=== PATIENT | female | born 1955 | race Caucasian/White ===

== ENCOUNTER 2021-03-09 13:31 | Inpatient (IN) ==
[2021-03-09] MEDS ORDERED: 0.9 % Sodium Chloride 1,000 ML IVC ONE (14:17)
[2021-03-09 14:35] LABS: Basophils # 0.1 K/mcL (0.0-0.2); Basophils % 0.3 %; Eosinophils % 0.2 %; Hematocrit 45.1 % (35.3-44.9); Hemoglobin 14.3 g/dL (11.5-15.4); Immature Granulocytes % 0.5 % (0-4); Lymphocytes # 1.9 K/mcL (0.6-4.6); Mean Corpuscular HGB Conc 31.7 g/dL (31.6-35.5); Mean Corpuscular Hemoglobin 26.7 pg (28.0-33.3); Mean Corpuscular Volume 84.3 fL (83.0-100.0); Monocytes # 1.3 K/mcL (0.0-1.3); Monocytes % 6.4 %; Neutrophils # 17.2 K/mcL (1.6-8.9); Platelet Count 421 K/mcL (140-400); Red Blood Count 5.35 M/mcL (3.82-4.97); Red Cell Distribution Width 14.8 % (11.5-14.5); Segmented Neutrophils % 83.6 %; White Blood Count 20.6 K/mcL (4.3-11.1)
[2021-03-09 14:53] LABS: Alanine Aminotransferase 7 Units/L (7-52); Albumin 4.4 g/dL (3.5-5.7); Albumin/Globulin Ratio 1.2 (1.1-2.2); Alkaline Phosphatase 140 Units/L (34-104); Amylase 37 Units/L (29-103); Aspartate Amino Transferase 13 Units/L (13-39); BUN/Creatinine Ratio 17 (6-26); Bilirubin,Direct 0.1 mg/dL (0.0-0.2); Bilirubin,Indirect 0.4 mg/dL (0.0-1.0); Bilirubin,Total 0.5 mg/dL (0.3-1.0); Blood Urea Nitrogen 15 mg/dL (8-23); Calcium 9.6 mg/dL (8.6-10.3); Carbon Dioxide 24 mEq/L (23-29); Chloride 98 mEq/L (98-107); Globulin 3.8 g/dL (2.4-3.5); Glucose 93 mg/dL (70-105); Lipase 10 Units/L (11-82); Osmolality,Calculated 279 (280-300); Potassium 3.3 mEq/L (3.5-5.1); Sodium 134 mEq/L (136-145); Total Protein 8.2 g/dL (6.4-8.9); eGFR For African Americans > 60 (> 60); eGFR For Non-African Americans > 60 (> 60)
[2021-03-09 15:00] LABS: Troponin I < 0.03 ng/mL (< 0.04)
[2021-03-09] MEDS ORDERED: Piperacillin/Tazobactam 3.375 GM in 0.9 % Sodium Chloride Mini Bag 100 ML IVPB ONE (16:21)
[2021-03-09] MEDS ORDERED: Acetaminophen 325 MG TABLET PO PRN (17:22)
[2021-03-09] MEDS ORDERED: Ondansetron 4 MG/2 ML VIAL IVP PRN (17:22)
[2021-03-09] MEDS ORDERED: Naloxone 0.4 MG/ML INJ IVP PRN (17:22)
[2021-03-09] MEDS ORDERED: Melatonin 3 MG TABLET PO PRN (17:22)
[2021-03-09] MEDS ORDERED: 0.9 % Sodium Chloride 1,000 ML IVC SCH (17:30)
[2021-03-09] MEDS ORDERED: *HR* Dextrose 50 % in Water (Vial) 50 ML VIAL IVP PRN (18:57)
[2021-03-09] MEDS ORDERED: Dextrose Gel 15 GM/37.5 ML TUBE PO PRN ×2 (18:57)
[2021-03-09] MEDS ORDERED: D5% in Water 1,000 ML IVC PRN (18:57)
[2021-03-09 19:35] LABS: Influenza A PCR Negative (Negative); Influenza B PCR Negative (Negative); Resp. Syncytial Virus PCR Negative (Negative); SARS-CoV-2 by PCR (In House) Negative (Negative)
[2021-03-09 20:38] LABS: Bacteria,Urine Few per hpf (None-Few); Bilirubin,Urine Negative (Negative); Blood,Urine Small (Negative); Clarity,Urine Clear (Clear); Color,Urine Yellow (Yellow); Glucose,Urine (UA) Normal (Normal); Ketones,Urine 40 mg/dL (Negative); Leukocyte Esterase,Urine Large (Negative); Mucus,Urine Few per lpf (None-Few); Nitrite,Urine Negative (Negative); Protein,Urine Trace mg/dL (Neg-Trace); RBC,Urine 15-30 per hpf (0-3); Specific Gravity,Urine 1.028 (1.010-1.025); Squamous Epithelial Cell,Urine Few per hpf (None-Few); Urobilinogen,Urine Normal (Normal); WBC,Urine 30-50 per hpf (0-3)
[2021-03-10] MEDS: Piperacillin/Tazobactam 3.375 GM in 0.9 % Sodium Chloride Mini Bag 100 ML IVPB SCH ×3 (01:17→16:46)
[2021-03-10 06:43] LABS: Basophils % 0.2 %; Eosinophils % 0.2 %; Hematocrit 35.2 % (35.3-44.9); Hemoglobin 11.4 g/dL (11.5-15.4); Immature Granulocytes % 0.6 % (0-4); Lymphocytes # 1.3 K/mcL (0.6-4.6); Lymphocytes % 7.4 %; Mean Corpuscular HGB Conc 32.4 g/dL (31.6-35.5); Mean Corpuscular Hemoglobin 27.1 pg (28.0-33.3); Mean Corpuscular Volume 83.6 fL (83.0-100.0); Mean Platelet Volume 9.4 fL (9.4-12.4); Monocytes % 5.9 %; Neutrophils # 14.6 K/mcL (1.6-8.9); Platelet Count 302 K/mcL (140-400); Red Blood Count 4.21 M/mcL (3.82-4.97); Red Cell Distribution Width 14.6 % (11.5-14.5); Segmented Neutrophils % 85.7 %
[2021-03-10 06:50] LABS: INR 1.3; Prothrombin Time 14.4 Seconds (9.4-12.1)
[2021-03-10 07:03] LABS: BUN/Creatinine Ratio 22 (6-26); Blood Urea Nitrogen 17 mg/dL (8-23); Calcium 8.1 mg/dL (8.6-10.3); Carbon Dioxide 19 mEq/L (23-29); Chloride 106 mEq/L (98-107); Glucose 73 mg/dL (70-105); Magnesium 1.9 mg/dL (1.6-2.6); Osmolality,Calculated 282 (280-300); Phosphorous 3.3 mg/dL (2.7-4.5); Potassium 3.8 mEq/L (3.5-5.1); Sodium 136 mEq/L (136-145); eGFR For African Americans > 60 (> 60); eGFR For Non-African Americans > 60 (> 60)
[2021-03-10] MEDS ORDERED: Famotidine 20 MG/2 ML VIAL IVP ONE (09:09)
[2021-03-10] MEDS ORDERED: Scopolamine Patch 1.5 MG PATCH.TD72 TD ONE (09:09)
[2021-03-10] MEDS ORDERED: Famotidine 20 MG/2 ML VIAL ONE (09:11)
[2021-03-10] MEDS ORDERED: Scopolamine Patch 1.5 MG PATCH.TD72 ONE (09:11)
[2021-03-10] MEDS ORDERED: *HR* Propofol 200 MG/20 ML VIAL IVP ONE (09:13)
[2021-03-10] MEDS ORDERED: *HR* FentaNYL (PF) 100 MCG/2 ML VIAL ONE (09:13)
[2021-03-10] MEDS ORDERED: Ondansetron 4 MG/2 ML VIAL ONE (09:15)
[2021-03-10] MEDS ORDERED: Lidocaine -MPF 2% 2 ML VIAL ONE ×3 (09:15→12:52)
[2021-03-10] MEDS ORDERED: Lidocaine HCL 4 ML Topical Solution (Laryng-O-Jet Kit Sterile Pak) TP ONE (09:15)
[2021-03-10] MEDS ORDERED: *HR* Rocuronium Bromide 50 MG/5 ML VIAL ONE (09:15)
[2021-03-10] MEDS ORDERED: *HR* HYDROmorphone PF 0.5 MG/0.5 ML SYRINGE IVP PRN (10:22)
[2021-03-10] MEDS ORDERED: Ondansetron 4 MG/2 ML VIAL IVP PRN ×2 (10:22→15:10)
[2021-03-10] MEDS ORDERED: Sugammadex Sodium 200 MG/2 ML VIAL IV ONE (12:34)
[2021-03-10] MEDS ORDERED: *HR* HYDROMORPHONE 2 MG/ML VIAL ONE (13:52)
[2021-03-10] MEDS ORDERED: D5% in 0.45% NACL w KCl 20 MEQ/1,000 ML MLS IVC SCH (15:10)
[2021-03-10] MEDS ORDERED: Naloxone 0.4 MG/ML INJ IVP PRN (15:10)
[2021-03-10] MEDS ORDERED: Morphine PCA 30 MG/ 30 ML 30 ML PCA.VIAL IVC PRN (15:10)
[2021-03-10] MEDS ORDERED: Dextrose Gel 15 GM/37.5 ML TUBE PO PRN ×2 (15:10)
[2021-03-10] MEDS ORDERED: Melatonin 3 MG TABLET PO PRN (15:10)
[2021-03-10] MEDS ORDERED: *HR* Dextrose 50 % in Water (Vial) 50 ML VIAL IVP PRN (15:10)
[2021-03-10] MEDS ORDERED: D5% in Water 1,000 ML IVC PRN (15:10)
[2021-03-10] MEDS ORDERED: Gabapentin 300 MG CAPSULE PO SCH (15:10)
[2021-03-10] MEDS: Acetaminophen IV 1,000 MG/100 ML BAG IVPB SCH (17:51)
[2021-03-10] MEDS: Pantoprazole 40 MG VIAL IVP SCH (17:54)
[2021-03-10] MEDS: Ketorolac 15 MG/ML VIAL IVP SCH (17:55)
[2021-03-10] MEDS: *HR* Heparin 5,000 UNIT/ML VIAL SQ SCH (17:55)
[2021-03-11] MEDS ORDERED: D5% in 0.45% NACL w KCl 20 MEQ/1,000 ML MLS IVC SCH (00:39)
[2021-03-11] MEDS: Acetaminophen IV 1,000 MG/100 ML BAG IVPB SCH ×4 (00:56→18:59)
[2021-03-11] MEDS: Ketorolac 15 MG/ML VIAL IVP SCH ×4 (00:57→19:00)
[2021-03-11] MEDS: Piperacillin/Tazobactam 3.375 GM in 0.9 % Sodium Chloride Mini Bag 100 ML IVPB SCH ×3 (00:58→18:58)
[2021-03-11 03:09] LABS: Basophils % 0.1 %; Hematocrit 29.7 % (35.3-44.9); Immature Granulocytes % 0.7 % (0-4); Lymphocytes # 1.1 K/mcL (0.6-4.6); Lymphocytes % 5.2 %; Mean Corpuscular HGB Conc 31.6 g/dL (31.6-35.5); Mean Corpuscular Hemoglobin 26.3 pg (28.0-33.3); Mean Corpuscular Volume 83.2 fL (83.0-100.0); Monocytes # 1.6 K/mcL (0.0-1.3); Monocytes % 7.6 %; Neutrophils # 18.7 K/mcL (1.6-8.9); Platelet Count 275 K/mcL (140-400); Red Blood Count 3.57 M/mcL (3.82-4.97); Red Cell Distribution Width 14.6 % (11.5-14.5); Segmented Neutrophils % 86.4 %; White Blood Count 21.7 K/mcL (4.3-11.1)
[2021-03-11 03:10] LABS: Hemoglobin 9.4 g/dL (11.5-15.4)
[2021-03-11 03:32] LABS: BUN/Creatinine Ratio 27 (6-26); Blood Urea Nitrogen 25 mg/dL (8-23); Calcium 7.7 mg/dL (8.6-10.3); Carbon Dioxide 20 mEq/L (23-29); Chloride 106 mEq/L (98-107); Glucose 198 mg/dL (70-105); Osmolality,Calculated 282 (280-300); Potassium 4.2 mEq/L (3.5-5.1); Sodium 131 mEq/L (136-145); eGFR For African Americans > 60 (> 60); eGFR For Non-African Americans > 60 (> 60)
[2021-03-11 03:33] LABS: Magnesium 1.7 mg/dL (1.6-2.6); Phosphorous 2.1 mg/dL (2.7-4.5)
[2021-03-11] MEDS: *HR* Heparin 5,000 UNIT/ML VIAL SQ SCH ×2 (06:00→18:59)
[2021-03-11] MEDS ORDERED: Levothyroxine 25 MCG TABLET PO SCH (06:30)
[2021-03-11] MEDS ORDERED: Losartan/HCTZ 50-12.5 TABLET PO SCH (09:00)
[2021-03-11] MEDS: 0.9 % Sodium Chloride 1,000 ML IVC SCH (09:34)
[2021-03-11] MEDS: Fluconazole 400 MG/200 ML 400 MG/200 ML BAG IVPB SCH (09:36)
[2021-03-11] MEDS: Pantoprazole 40 MG VIAL IVP SCH (09:42)
[2021-03-11 13:25] LABS: Hematocrit 29.1 % (35.3-44.9); Hemoglobin 9.3 g/dL (11.5-15.4)
[2021-03-12] MEDS: 0.9 % Sodium Chloride 1,000 ML IVC SCH (00:14)
[2021-03-12] MEDS: Piperacillin/Tazobactam 3.375 GM in 0.9 % Sodium Chloride Mini Bag 100 ML IVPB SCH ×3 (00:15→18:13)
[2021-03-12] MEDS: Ketorolac 15 MG/ML VIAL IVP SCH ×4 (00:15→18:18)
[2021-03-12] MEDS: Acetaminophen IV 1,000 MG/100 ML BAG IVPB SCH ×4 (00:15→18:13)
[2021-03-12 05:51] LABS: Basophils % 0.2 %; Eosinophils # 0.4 K/mcL (0.0-0.6); Eosinophils % 2.1 %; Hematocrit 26.4 % (35.3-44.9); Hemoglobin 8.5 g/dL (11.5-15.4); Immature Granulocytes % 0.4 % (0-4); Lymphocytes # 1.3 K/mcL (0.6-4.6); Lymphocytes % 7.5 %; Mean Corpuscular HGB Conc 32.2 g/dL (31.6-35.5); Mean Corpuscular Hemoglobin 27.3 pg (28.0-33.3); Mean Corpuscular Volume 84.9 fL (83.0-100.0); Mean Platelet Volume 10.2 fL (9.4-12.4); Monocytes # 1.1 K/mcL (0.0-1.3); Monocytes % 6.7 %; Platelet Count 230 K/mcL (140-400); Red Blood Count 3.11 M/mcL (3.82-4.97); Red Cell Distribution Width 15.5 % (11.5-14.5); Segmented Neutrophils % 83.1 %; White Blood Count 16.9 K/mcL (4.3-11.1)
[2021-03-12 06:08] LABS: BUN/Creatinine Ratio 26 (6-26); Blood Urea Nitrogen 21 mg/dL (8-23); Calcium 7.7 mg/dL (8.6-10.3); Carbon Dioxide 22 mEq/L (23-29); Chloride 110 mEq/L (98-107); Glucose 78 mg/dL (70-105); Magnesium 1.7 mg/dL (1.6-2.6); Osmolality,Calculated 284 (280-300); Potassium 4.2 mEq/L (3.5-5.1); Sodium 136 mEq/L (136-145); eGFR For African Americans > 60 (> 60); eGFR For Non-African Americans > 60 (> 60)
[2021-03-12] MEDS: *HR* Heparin 5,000 UNIT/ML VIAL SQ SCH ×2 (06:43→18:17)
[2021-03-12] MEDS ORDERED: *HR* OxyCODONE Immed Rel 5 MG TABLET PO PRN (07:43)
[2021-03-12] MEDS: Fluconazole 400 MG/200 ML 400 MG/200 ML BAG IVPB SCH (09:25)
[2021-03-12] MEDS: Pantoprazole 40 MG VIAL IVP SCH (09:27)
[2021-03-13] MEDS: Acetaminophen IV 1,000 MG/100 ML BAG IVPB SCH ×2 (00:12→06:04)
[2021-03-13] MEDS: Ketorolac 15 MG/ML VIAL IVP SCH ×2 (03:16→06:04)
[2021-03-13] MEDS: Piperacillin/Tazobactam 3.375 GM in 0.9 % Sodium Chloride Mini Bag 100 ML IVPB SCH ×3 (03:22→18:03)
[2021-03-13] MEDS: Levothyroxine 25 MCG TABLET PO SCH (06:04)
[2021-03-13 06:12] LABS: Basophils % 0.2 %; Eosinophils # 0.4 K/mcL (0.0-0.6); Eosinophils % 2.5 %; Hematocrit 24.6 % (35.3-44.9); Immature Granulocytes % 0.5 % (0-4); Lymphocytes # 1.3 K/mcL (0.6-4.6); Lymphocytes % 9.1 %; Mean Corpuscular HGB Conc 32.5 g/dL (31.6-35.5); Mean Corpuscular Hemoglobin 27.5 pg (28.0-33.3); Mean Corpuscular Volume 84.5 fL (83.0-100.0); Monocytes # 0.7 K/mcL (0.0-1.3); Monocytes % 4.9 %; Neutrophils # 11.9 K/mcL (1.6-8.9); Platelet Count 224 K/mcL (140-400); Red Blood Count 2.91 M/mcL (3.82-4.97); Red Cell Distribution Width 16.1 % (11.5-14.5); Segmented Neutrophils % 82.8 %; White Blood Count 14.3 K/mcL (4.3-11.1)
[2021-03-13 08:03] LABS: BUN/Creatinine Ratio 26 (6-26); Blood Urea Nitrogen 19 mg/dL (8-23); Calcium 7.9 mg/dL (8.6-10.3); Carbon Dioxide 21 mEq/L (23-29); Chloride 112 mEq/L (98-107); Glucose 79 mg/dL (70-105); Osmolality,Calculated 289 (280-300); Potassium 4.2 mEq/L (3.5-5.1); Sodium 139 mEq/L (136-145); eGFR For African Americans > 60 (> 60); eGFR For Non-African Americans > 60 (> 60)
[2021-03-13 08:04] LABS: Phosphorous 3.3 mg/dL (2.7-4.5)
[2021-03-13] MEDS: Losartan/HCTZ 50-12.5 TABLET PO SCH (08:49)
[2021-03-13] MEDS: Fluconazole 400 MG/200 ML 400 MG/200 ML BAG IVPB SCH (08:49)
[2021-03-13 13:16] LABS: Ferritin 100 ng/mL (10-120); Iron < 10 mcg/dL (50-170); Transferrin 176 mg/dL (203-362)
[2021-03-13] MEDS ORDERED: Iron Sucrose Complex 200 MG in 0.9 % Sodium Chloride 100 ML IVPB ONE (14:30)
[2021-03-13] MEDS: Ibuprofen 800 MG TABLET PO SCH (18:02)
[2021-03-14] MEDS: Ibuprofen 800 MG TABLET PO SCH ×2 (00:06→08:43)
[2021-03-14] MEDS: Piperacillin/Tazobactam 3.375 GM in 0.9 % Sodium Chloride Mini Bag 100 ML IVPB SCH ×2 (00:08→08:43)
[2021-03-14 05:47] LABS: Basophils # 0.1 K/mcL (0.0-0.2); Basophils % 0.3 %; Eosinophils # 0.7 K/mcL (0.0-0.6); Eosinophils % 4.8 %; Hematocrit 30.8 % (35.3-44.9); Immature Granulocytes % 0.6 % (0-4); Lymphocytes # 1.6 K/mcL (0.6-4.6); Lymphocytes % 10.7 %; Mean Corpuscular HGB Conc 31.8 g/dL (31.6-35.5); Mean Corpuscular Volume 84.8 fL (83.0-100.0); Mean Platelet Volume 9.9 fL (9.4-12.4); Monocytes # 0.6 K/mcL (0.0-1.3); Monocytes % 3.8 %; Neutrophils # 11.6 K/mcL (1.6-8.9); Platelet Count 318 K/mcL (140-400); Red Blood Count 3.63 M/mcL (3.82-4.97); Red Cell Distribution Width 16.2 % (11.5-14.5); Segmented Neutrophils % 79.8 %; White Blood Count 14.6 K/mcL (4.3-11.1)
[2021-03-14 05:48] LABS: Hemoglobin 9.8 g/dL (11.5-15.4)
[2021-03-14 06:02] LABS: Magnesium 1.9 mg/dL (1.6-2.6); Phosphorous 3.5 mg/dL (2.7-4.5)
[2021-03-14] MEDS: Levothyroxine 25 MCG TABLET PO SCH (06:02)
[2021-03-14 06:05] LABS: BUN/Creatinine Ratio 26 (6-26); Blood Urea Nitrogen 18 mg/dL (8-23); Carbon Dioxide 23 mEq/L (23-29); Chloride 109 mEq/L (98-107); Glucose 85 mg/dL (70-105); Osmolality,Calculated 291 (280-300); Potassium 4.1 mEq/L (3.5-5.1); Sodium 140 mEq/L (136-145); eGFR For African Americans > 60 (> 60); eGFR For Non-African Americans > 60 (> 60)
[2021-03-14] MEDS: Losartan/HCTZ 50-12.5 TABLET PO SCH (08:43)
[2021-03-14] MEDS: Fluconazole 400 MG/200 ML 400 MG/200 ML BAG IVPB SCH (08:44)
[2021-03-14 11:04] VITALS: BP 120/74; PULSE 70; TEMP 97.9; O2SAT 95
== END 2021-03-14 13:43 | disposition home health service (06) | DRG 330 ==
LOC: EMEROOARM 13:31 → 3ANU 13:31 → SUATTDRO 16:34 → 3ANU 16:57 → SUATTDRO 03-10 17:51
PROVIDERS: ADMIT Family Medicine; ATTEND Hospitalist

== ENCOUNTER 2021-08-29 12:29 | Inpatient (IN) ==
[2021-08-29] MEDS ORDERED: Acetaminophen IV 1,000 MG/100 ML BAG IVPB ONE (12:45)
[2021-08-29] MEDS ORDERED: Ringers Solution, Lactated 1,000 ML IVC ONE (12:45)
[2021-08-29] MEDS ORDERED: Famotidine 20 MG/2 ML VIAL IVP ONE (12:45)
[2021-08-29] MEDS ORDERED: cefOXitin 2,000 MG in Water for inj. (sterile) 10 ML IVP ONE (13:06)
[2021-08-29] MEDS ORDERED: *HR* Propofol 200 MG/20 ML VIAL IVP ONE (14:08)
[2021-08-29] MEDS ORDERED: Lidocaine -MPF 4% 5 ML AMPUL ONE (14:08)
[2021-08-29] MEDS ORDERED: Lidocaine -MPF 2% 5 ML VIAL ONE (14:08)
[2021-08-29] MEDS ORDERED: Ondansetron 4 MG/2 ML VIAL ONE (14:08)
[2021-08-29] MEDS ORDERED: *HR* Rocuronium Bromide 50 MG/5 ML VIAL ONE ×2 (14:08→17:56)
[2021-08-29] MEDS ORDERED: *HR* Labetalol 20 MG/4 ML SYRINGE IVP ONE (14:12)
[2021-08-29] MEDS ORDERED: Ondansetron 4 MG/2 ML VIAL IVP ONE (15:15)
[2021-08-29] MEDS ORDERED: Albuterol 2.5 MG/3 ML NEBULIZER IH PRN (15:34)
[2021-08-29] MEDS ORDERED: Naloxone 0.4 MG/ML INJ IVP PRN ×2 (15:34→20:01)
[2021-08-29] MEDS ORDERED: Nitroglycerin 0.4 MG TAB.SUBL SL PRN (15:34)
[2021-08-29] MEDS ORDERED: *HR* HYDROmorphone PF 0.5 MG/0.5 ML SYRINGE IVP PRN (15:34)
[2021-08-29] MEDS ORDERED: *HR* FentaNYL (PF) 100 MCG/2 ML VIAL IVP PRN (15:34)
[2021-08-29] MEDS ORDERED: Ondansetron 4 MG/2 ML VIAL IVP PRN ×2 (15:34→20:01)
[2021-08-29] MEDS ORDERED: *HR* FentaNYL (PF) 100 MCG/2 ML VIAL ONE (15:43)
[2021-08-29] MEDS ORDERED: *HR* Midazolam HCl 2 MG/2 ML VIAL ONE (15:44)
[2021-08-29] MEDS ORDERED: EPHEDrine 50 MG/ML VIAL ONE (17:09)
[2021-08-29] MEDS ORDERED: *HR* HYDROMORPHONE 2 MG/ML VIAL ONE (18:36)
[2021-08-29] MEDS ORDERED: Sugammadex Sodium 200 MG/2 ML VIAL IV ONE (19:00)
[2021-08-29] MEDS ORDERED: Morphine Sulfate 2 MG/ML SYRINGE IVP PRN ×2 (20:01)
[2021-08-29] MEDS ORDERED: *HR* Metoprolol 5 MG/5 ML VIAL IVP PRN (20:01)
[2021-08-29] MEDS: 0.9 % Sodium Chloride 1,000 ML IVC SCH (21:16)
[2021-08-30] MEDS: Ketorolac 30 MG/ML VIAL IVP SCH ×4 (00:13→18:11)
[2021-08-30] MEDS: Piperacillin/Tazobactam 3.375 GM in 0.9 % Sodium Chloride Mini Bag 100 ML IVPB SCH ×3 (01:19→15:56)
[2021-08-30] MEDS: Acetaminophen IV 1,000 MG/100 ML BAG IVPB SCH ×4 (01:26→18:10)
[2021-08-30 02:17] LABS: Basophils % 0.1 %; Hematocrit 34.6 % (35.3-44.9); Hemoglobin 10.9 g/dL (11.5-15.4); Immature Granulocytes % 0.6 % (0-4); Lymphocytes # 0.6 K/mcL (0.6-4.6); Lymphocytes % 2.5 %; Mean Corpuscular HGB Conc 31.5 g/dL (31.6-35.5); Mean Corpuscular Hemoglobin 26.3 pg (28.0-33.3); Mean Corpuscular Volume 83.6 fL (83.0-100.0); Mean Platelet Volume 10.1 fL (9.4-12.4); Monocytes # 0.5 K/mcL (0.0-1.3); Monocytes % 2.3 %; Neutrophils # 20.4 K/mcL (1.6-8.9); Platelet Count 297 K/mcL (140-400); Red Blood Count 4.14 M/mcL (3.82-4.97); Red Cell Distribution Width 15.8 % (11.5-14.5); Segmented Neutrophils % 94.5 %; White Blood Count 21.6 K/mcL (4.3-11.1)
[2021-08-30 02:33] LABS: BUN/Creatinine Ratio 16 (6-26); Blood Urea Nitrogen 11 mg/dL (8-23); Calcium 8.3 mg/dL (8.6-10.3); Carbon Dioxide 23 mEq/L (23-29); Chloride 107 mEq/L (98-107); Glucose 150 mg/dL (70-105); Magnesium 1.6 mg/dL (1.6-2.6); Osmolality,Calculated 286 (280-300); Phosphorous 2.9 mg/dL (2.7-4.5); Potassium 3.6 mEq/L (3.5-5.1); Sodium 137 mEq/L (136-145); eGFR For African Americans > 60 (> 60); eGFR For Non-African Americans > 60 (> 60)
[2021-08-30] MEDS: 0.9 % Sodium Chloride 1,000 ML IVC SCH ×2 (06:50→18:10)
[2021-08-30] MEDS ORDERED: Levothyroxine Sodium 100 MCG VIAL IVP SCH (09:00)
[2021-08-30] MEDS: Pantoprazole 40 MG VIAL IVP SCH (10:59)
[2021-08-31] MEDS: Acetaminophen IV 1,000 MG/100 ML BAG IVPB SCH ×4 (00:33→18:04)
[2021-08-31] MEDS: Ketorolac 30 MG/ML VIAL IVP SCH ×4 (00:33→18:31)
[2021-08-31] MEDS: Piperacillin/Tazobactam 3.375 GM in 0.9 % Sodium Chloride Mini Bag 100 ML IVPB SCH ×3 (00:33→18:32)
[2021-08-31] MEDS: Levothyroxine 25 MCG TABLET PO SCH (05:27)
[2021-08-31 06:34] LABS: Basophils % 0.2 %; Eosinophils # 0.1 K/mcL (0.0-0.6); Eosinophils % 0.5 %; Hematocrit 29.5 % (35.3-44.9); Immature Granulocytes % 0.4 % (0-4); Lymphocytes # 1.6 K/mcL (0.6-4.6); Lymphocytes % 12.1 %; Mean Corpuscular HGB Conc 30.2 g/dL (31.6-35.5); Mean Corpuscular Hemoglobin 25.7 pg (28.0-33.3); Mean Corpuscular Volume 85.3 fL (83.0-100.0); Mean Platelet Volume 10.6 fL (9.4-12.4); Monocytes % 7.5 %; Neutrophils # 10.1 K/mcL (1.6-8.9); Platelet Count 234 K/mcL (140-400); Red Blood Count 3.46 M/mcL (3.82-4.97); Red Cell Distribution Width 16.6 % (11.5-14.5); Segmented Neutrophils % 79.3 %; White Blood Count 12.8 K/mcL (4.3-11.1)
[2021-08-31 06:35] LABS: Hemoglobin 8.9 g/dL (11.5-15.4)
[2021-08-31 06:52] LABS: BUN/Creatinine Ratio 19 (6-26); Blood Urea Nitrogen 15 mg/dL (8-23); Carbon Dioxide 21 mEq/L (23-29); Chloride 111 mEq/L (98-107); Glucose 82 mg/dL (70-105); Magnesium 1.7 mg/dL (1.6-2.6); Osmolality,Calculated 286 (280-300); Phosphorous 1.9 mg/dL (2.7-4.5); Potassium 3.1 mEq/L (3.5-5.1); Sodium 138 mEq/L (136-145); eGFR For African Americans > 60 (> 60); eGFR For Non-African Americans > 60 (> 60)
[2021-08-31] MEDS ORDERED: Potassium Phosphate 44 MEQ in 0.9 % Sodium Chloride 250 ML IVPB ONE (07:10)
[2021-08-31] MEDS: Pantoprazole 40 MG VIAL IVP SCH (08:00)
[2021-08-31] MEDS: 0.9 % Sodium Chloride 1,000 ML IVC SCH (09:37)
[2021-09-01] MEDS: Acetaminophen IV 1,000 MG/100 ML BAG IVPB SCH ×2 (00:49→05:42)
[2021-09-01] MEDS: Piperacillin/Tazobactam 3.375 GM in 0.9 % Sodium Chloride Mini Bag 100 ML IVPB SCH ×2 (00:49→11:44)
[2021-09-01] MEDS: Ketorolac 30 MG/ML VIAL IVP SCH ×4 (00:49→18:56)
[2021-09-01 05:09] LABS: Basophils # 0.1 K/mcL (0.0-0.2); Basophils % 0.5 %; Eosinophils # 0.5 K/mcL (0.0-0.6); Eosinophils % 4.5 %; Hematocrit 28.7 % (35.3-44.9); Hemoglobin 8.7 g/dL (11.5-15.4); Immature Granulocytes % 0.4 % (0-4); Lymphocytes # 1.5 K/mcL (0.6-4.6); Lymphocytes % 13.5 %; Mean Corpuscular HGB Conc 30.3 g/dL (31.6-35.5); Mean Corpuscular Hemoglobin 25.7 pg (28.0-33.3); Mean Corpuscular Volume 84.9 fL (83.0-100.0); Mean Platelet Volume 10.5 fL (9.4-12.4); Monocytes # 0.9 K/mcL (0.0-1.3); Monocytes % 7.9 %; Neutrophils # 8.2 K/mcL (1.6-8.9); Platelet Count 236 K/mcL (140-400); Red Blood Count 3.38 M/mcL (3.82-4.97); Red Cell Distribution Width 17.1 % (11.5-14.5); Segmented Neutrophils % 73.2 %; White Blood Count 11.2 K/mcL (4.3-11.1)
[2021-09-01 05:27] LABS: BUN/Creatinine Ratio 14 (6-26); Blood Urea Nitrogen 10 mg/dL (8-23); Calcium 7.8 mg/dL (8.6-10.3); Carbon Dioxide 21 mEq/L (23-29); Chloride 114 mEq/L (98-107); Glucose 84 mg/dL (70-105); Magnesium 1.6 mg/dL (1.6-2.6); Osmolality,Calculated 288 (280-300); Phosphorous 2.1 mg/dL (2.7-4.5); Potassium 3.3 mEq/L (3.5-5.1); Sodium 140 mEq/L (136-145); eGFR For African Americans > 60 (> 60); eGFR For Non-African Americans > 60 (> 60)
[2021-09-01] MEDS: 0.9 % Sodium Chloride 1,000 ML IVC SCH (05:43)
[2021-09-01] MEDS: Levothyroxine 25 MCG TABLET PO SCH (05:43)
[2021-09-01] MEDS ORDERED: Potassium Phosphate 44 MEQ in 0.9 % Sodium Chloride 250 ML IVPB ONE (10:17)
[2021-09-01] MEDS ORDERED: Potassium Effervescent 25 MEQ TABLET.EFF PO ONE (10:30)
[2021-09-01] MEDS: Pantoprazole 40 MG VIAL IVP SCH (11:44)
[2021-09-01] MEDS ORDERED: *HR* HYDROcodone/Acet 5/325 mg TABLET PO PRN (11:50)
[2021-09-01] MEDS ORDERED: Acetaminophen 325 MG TABLET PO PRN (11:51)
[2021-09-02] MEDS: Ketorolac 30 MG/ML VIAL IVP SCH ×3 (01:07→11:46)
[2021-09-02] MEDS: Levothyroxine 25 MCG TABLET PO SCH (07:29)
[2021-09-02 08:26] VITALS: BP 144/73; PULSE 59; TEMP 98.6; O2SAT 95
== END 2021-09-02 13:35 | disposition home or self-care (01) | DRG 330 ==
LOC: SAMDAY 12:29 → 3ANU 19:58
PROVIDERS: ADMIT Surgery; ATTEND Surgery